=== PATIENT | male | born 1965 | race Hispanic/Latino ===

== ENCOUNTER 2021-04-29 14:06 | Outpatient (CLI) | payer MEDICARE | END 2021-04-29 14:07 | disposition home or self-care (01) | LOC: CSHRAD 14:06 | PROVIDERS: ATTEND Nurse Practitioner Family | DX: M19.012 Primary osteoarthritis, left shoulder (principal) ==

== ENCOUNTER 2023-07-12 23:49 | Emergency (ER) | payer MEDICARE, OTHER ==
[2023-07-13] MEDS ORDERED: Morphine 4 MG/ML VIAL ONE (00:46)
[2023-07-13] MEDS ORDERED: Ketorolac Tromethamine 30 MG/ML VIAL ONE (00:46)
== END 2023-07-13 00:50 | disposition home or self-care (01) ==
LOC: CSHERS 23:49
DX: G89.18 Other acute postprocedural pain (principal); M25.561 Pain in right knee; I10 Essential (primary) hypertension; E11.9 Type 2 diabetes mellitus without complications; F17.210 Nicotine dependence, cigarettes, uncomplicated; F03.90 Unspecified dementia, unspecified severity, without behavioral disturbance, psychotic disturbance, mood disturbance, and anxiety; Z96.651 Presence of right artificial knee joint; Z79.84 Long term (current) use of oral hypoglycemic drugs; Z79.899 Other long term (current) drug therapy
CPT/HCPCS: 96372; 99283; J1885; J2270

== ENCOUNTER 2023-08-25 07:41 | Day surgery (SDC) | payer OTHER ==
[2023-08-24 12:31] VITALS: BMI 32.1
[2023-08-25] MEDS ORDERED: Gentamicin 80 MG (100 mL) BAG ONE (08:32)
[2023-08-25] MEDS ORDERED: PROPOFOL 20 ML ONE (09:31)
[2023-08-25] MEDS ORDERED: Midazolam HCl 2 mg/2 ml Vial ONE (09:31)
== END 2023-08-25 11:10 | disposition home or self-care (01) ==
LOC: CSHSDC 07:41
PROVIDERS: ATTEND Internal Medicine Gastroenterology
PROC: 0DB98ZX Excision of Duodenum, Via Natural or Artificial Opening Endoscopic, Diagnostic (ICD-10-PCS; principal; 2023-08-25)
PROC: 0DB68ZX Excision of Stomach, Via Natural or Artificial Opening Endoscopic, Diagnostic (ICD-10-PCS; 2023-08-25)
DX: K29.50 Unspecified chronic gastritis without bleeding (principal); A04.8 Other specified bacterial intestinal infections; K31.7 Polyp of stomach and duodenum; E78.5 Hyperlipidemia, unspecified; E03.9 Hypothyroidism, unspecified; E11.9 Type 2 diabetes mellitus without complications; E78.00 Pure hypercholesterolemia, unspecified; I50.9 Heart failure, unspecified; I11.0 Hypertensive heart disease with heart failure; G47.33 Obstructive sleep apnea (adult) (pediatric); E66.9 Obesity, unspecified; Z79.82 Long term (current) use of aspirin; R13.10 Dysphagia, unspecified; Z96.651 Presence of right artificial knee joint; Z79.890 Hormone replacement therapy; Z79.84 Long term (current) use of oral hypoglycemic drugs; Z79.899 Other long term (current) drug therapy; Z90.89 Acquired absence of other organs; Z98.890 Other specified postprocedural states; Z68.32 Body mass index [BMI] 32.0-32.9, adult
CPT/HCPCS: 88305; J0290; J1580; J2250; J2704